=== PATIENT | female | born 1980 | race Caucasian/White ===

== ENCOUNTER 2016-09-07 07:16 | Day surgery (SDC) | payer BC ==
[~2016-09-07] VITALS: Ht 149.9 cm; Wt 54.0 kg
[2016-09-07] VITALS (14 sets, daily range): BP systolic 99–146; BP diastolic 56–74; PULSE 59–88; RESP 14–20; Ht 149.9 cm; Wt 54.0 kg
[2016-09-07] MEDS ORDERED: [UNRECOGNIZED DRUG - CODE] PO (08:57)
[2016-09-07] MEDS ORDERED: [UNRECOGNIZED DRUG - REMARK] (08:57)
[2016-09-07] MEDS ORDERED: POLYMYXIN/BACITRACIN 1L IRRIG ONE (09:15)
[2016-09-07] MEDS ORDERED: EPINEPHrine 1 MG INJ ONE (09:17)
[2016-09-07] MEDS ORDERED: MIDAZOLAM 1 MG/ML 2 ML INJ ONE (09:22)
[2016-09-07] MEDS ORDERED: EPINEPHrine 1 MG INJ SC ONE (10:51)
[2016-09-07] MEDS ORDERED: POLYMYXIN/BACITRACIN 1L IRRIG IRR ONE (10:55)
[2016-09-07] MEDS ORDERED: LIDOCAINE 1%/EPI 30 ML INJ ONE (11:48)
[2016-09-07] MEDS ORDERED: OXYMETAZOLINE 0.05% 15 ML NAS SPRAY NASAL ONE ×2 (11:48→13:47)
[2016-09-07] MEDS ORDERED: ONDANSETRON 4 MG INJ ONE (13:56)
[2016-09-07] MEDS ORDERED: CEFAZOLIN 1 GM INJ ONE (13:56)
[2016-09-07] MEDS ORDERED: PROPOFOL 20 ML ONE (13:56)
[2016-09-07] MEDS ORDERED: ROCURONIUM 50 MG INJ ONE (13:56)
[2016-09-07] MEDS ORDERED: LIDOCAINE 2% (SDV) 5 ML INJ ONE (13:56)
--- NOTE | 2016-09-07 14:09 | HPN ---
Date/Time of Note Date/Time of Note DATE: 09/07/16 TIME: 14:09 Interval H&P Admission Note Pt. seen H&P reviewed: No system changes LACEY WOLFF MD Sep 07, 2016 14:09
[2016-09-07] MEDS ORDERED: FENTAnyl 50 MCG/ML VIAL ONE (14:20)
[2016-09-07] MEDS ORDERED: HYDROCODONE/APAP (5/325) TAB PO PRN (14:30)
[2016-09-07] MEDS ORDERED: morphine 2 MG INJ IV PRN (14:30)
[2016-09-07] MEDS ORDERED: ONDANSETRON 4 MG INJ IV PRN ×2 (14:30→15:00)
[2016-09-07] MEDS ORDERED: FENTAnyl 50 MCG/ML VIAL IV ONE (14:30)
--- NOTE | 2016-09-07 14:50 | OPR ---
Date/Time of Note Date/Time of Note DATE: 09/07/16 TIME: 14:35 Operative Report Free Text/Dictation Plastic Surgery Operative Report Preoperative diagnosis: breast asymmetry, history of breast cancer, unacceptable appearance of nose Postoperative diagnosis: same Procedure: bilateral breast revision with implant exchange and fat grafting, rhinoplasty Surgeon: Albert Ruelas.:none Anesthesia: gen EBL:min IV fluids:per flow sheet Findings:tight, contracted capsule on the left Complications: none Dispo:home Indications for procedure: 36 yo F presents with bilateral breast asymmetry after a history of breast cancer and breast reinstruction. We will remove her implants, replaced them with new cohesive breast implants, and performed bilateral fat grafting and capsule work on the left. We will also perform a cosmetic rhinoplasty. The risks, benefits, alternatives of performing this procedure were discussed with the patient including risks of bleeding, infection , wound healing problems, repeat deformity, pain, airway problems, nasal deformity, need for revision, and the patient states that she understands these risks and would like to proceed with the procedure. All questions were answered , no guarantees were given with regards to the outcome of this procedure. Description of procedure: The patient was brought to the operating room at [facility] where general anesthesia was induced. Next, she was prepped and draped in usual sterile fashion with ChloraPrep on her chest. A total of 10 cc of tumescent solution were infiltrated into each previous incision site in the inframammary fold of the breasts. An additional 400 cc were infiltrated into her lower abdomen through stab incisions in the inferior umbilicus and bilateral flanks. Next, the left breast incision was opened with a 15 blade and electrocautery was used to dissect out into the capsule. The implant was removed. The capsule on the left side was extremely tight and thick. A portion of the capsule was excised and removed. Extensive capsulotomies were carried out laterally, superiorly, anteriorly using the electrocautery until the breast had been released so that I could accommodate the implant. Multiple rounds of capsulotomies and manual palpation were carried out until desired shape of the breast have been achieved. The breast was irrigated with antibiotic irrigation, hemostasis was achieved with electrocautery, then a TCX 470 cc sizer was opened, rinsed in antibiotic irrigation, and was inserted into the left breast. This was too small, and therefore a 525 cc sizer was inserted. This was too large, and then a 495 cc sizer was inserted. This gave the desired appearance. Therefore, the sizer was removed, the breasts are irrigated with antibiotic irrigation, hemostasis was achieved with electrocautery, and the breast was packed with a moist lap. The incision was made in the right breast inframammary fold incision. Dissection was carried out with electrocautery down to the implant capsule, and the implant capsule was opened and was removed. The implant pocket was much softer on the right side. Superior and medial capsulotomy was then carried out. The 495 cc sizer was inserted into the right breast and gave the desired appearance. Therefore, both breasts were irrigated with antibiotic irrigation once again, hemostasis was achieved with the electrocautery, gloves were changed , and then an Allergan TCX 495cc implant SN [id number] was opened, rinsed in antibiotic irrigation, and was inserted into the left breast. The same size and style implan SN [id number] implant was inserted into the right breast. The patient was sat up on the operating room table, the breasts are symmetric, and therefore the capsules were closed with 3-0 Vicryl suture. The Dodge cannulas were then used to harvest fat from the lower abdomen. The fat was allowed to decant, and was then reinjected into the envelopes of the breasts. This significantly improved the contour of the breasts. Therefore, the incisions were then closed with an additional layer 3-0 Vicryl suture followed by 4-0 Monocryl suture. Followed by Dermabond The patient was then reprepped and draped, and a total of 16 cc of 1% lidocaine with 1: 100,000 epinephrine were injected into the nose. The nose was then decorticated in the standard fashion through a transcolumellar incision. The lower lateral cartilages were measured, and in order to improve the definition and increased hip rotation, a 7 mm marking was made from the inferior to superior aspect, then a cephalic trim was performed bilaterally using the 15 blade and the scissors. The cartilage was inspected after redraping the skin, and this had the desired appearance. The transdomal and inter and intradomal sutures were then placed to shape the tip. The nose skin was then redraped and the tip was inspected. The desired appearance was achieved. Next, an additional 5 cc of local anesthetic were injected into the upper gingival buccal sulcus incision, which was then made intraorally with electrocautery. Dissection was carried out with the cautery to the depressor septi nasi muscles. These were then transected with electrocautery down to the nasal base. There were then approximated to each other with 5-0 Vicryl suture. Hemostasis was achieved with electrocautery, and then the intraoral incision was closed with 4-0 chromic suture. The nose was inspected one final time, it was irrigated with saline and hemostasis was achieved with electrocautery, and then the nose was closed with 6-0 nylon sutures on the columella and 4-0 chromic sutures intranasally. The patient tolerated the procedure well, there were no complications, follow-up information wound care instructions were given LACEY WOLFF MD Sep 07, 2016 14:50
[2016-09-07] MEDS ORDERED: HYDROmorphONE (0.2 MG/ML) 10ML SYG IV PRN ×2 (15:00)
[2016-09-07] MEDS ORDERED: FENTAnyl 50 MCG/ML VIAL IV PRN (15:00)
[2016-09-07] MEDS ORDERED: DIPHENHYDRAMINE 50 MG INJ IV PRN (15:00)
[2016-09-07] MEDS ORDERED: MEPERIDINE 25 MG INJ IV PRN (15:00)
== END 2016-09-07 16:13 | disposition home or self-care (01) ==
LOC: SDS 07:16
PROVIDERS: ATTEND Surgery Plastic and Reconstructive Surgery
DX: N65.1 Disproportion of reconstructed breast (principal); Z85.3 Personal history of malignant neoplasm of breast
CPT/HCPCS: 19380; 88305; C1789; J0171; J0690; J1170; J2250; J2405; J3010; Z7512; Z7610

== ENCOUNTER 2017-05-24 07:43 | Day surgery (SDC) | payer BC ==
[2017-05-23 15:30] VITALS: Ht 152.4 cm; Wt 55.2 kg
[~2017-05-24] VITALS: Ht 152.4 cm; Wt 55.2 kg
[2017-05-24] VITALS (13 sets, daily range): BP systolic 103–137; BP diastolic 48–69; PULSE 56–98; RESP 14–27
[~2017-05-24 07:43] MED LIST: PROPOFOL 200 MG INJ ONE; SOD CHLORIDE 0.9% 1,000 ML IV SCH; [UNRECOGNIZED DRUG - CODE] PO; [UNRECOGNIZED DRUG - REMARK]
[2017-05-24] MEDS ORDERED: FENTAnyl 50 MCG/ML VIAL ONE ×2 (11:30→13:15)
[2017-05-24] MEDS ORDERED: MIDAZOLAM 1 MG/ML 2 ML INJ ONE (11:30)
[2017-05-24] MEDS ORDERED: ROCURONIUM 50 MG INJ ONE (11:30)
[2017-05-24] MEDS ORDERED: LIDOCAINE 2% (SDV) 5 ML INJ ONE (11:31)
[2017-05-24] MEDS ORDERED: PROPOFOL 20 ML ONE (11:31)
[2017-05-24] MEDS ORDERED: ONDANSETRON 4 MG INJ ONE (11:31)
[2017-05-24] MEDS ORDERED: DEXAMETHASONE 4 MG/ML 1 ML INJ ONE (11:31)
[2017-05-24] MEDS ORDERED: FAMOTIDINE 20 MG INJ ONE (11:32)
[2017-05-24] MEDS ORDERED: SODIUM CL BACTERIOSTATIC 30 ML INJ ONE (12:06)
[2017-05-24] MEDS ORDERED: POLYMYXIN/BACITRACIN 1L IRRIG ONE (12:07)
[2017-05-24] MEDS ORDERED: GENTAMICIN 80 MG INJ ONE (12:07)
[2017-05-24] MEDS ORDERED: BUPIVACAINE LIPOSOME/PF 266 MG/20 ML VIAL INFIL SCH (12:30)
--- NOTE | 2017-05-24 12:35 | HPN ---
Date/Time of Note Date/Time of Note DATE: 05/24/17 TIME: 12:35 Interval H&P Admission Note Pt. seen H&P reviewed: No system changes LACEY WOLFF MD May 24, 2017 12:35
[2017-05-24] MEDS ORDERED: EPINEPHrine 100 MCG/10 ML SYG IV ONE (12:42)
[2017-05-24] MEDS ORDERED: EPINEPHrine 1 MG INJ ONE (12:42)
[2017-05-24] MEDS ORDERED: morphine 2 MG INJ IV PRN (13:00)
[2017-05-24] MEDS ORDERED: HYDROCODONE/APAP (5/325) TAB PO PRN (13:00)
[2017-05-24] MEDS ORDERED: ONDANSETRON 4 MG INJ IV PRN ×2 (13:00→15:00)
--- NOTE | 2017-05-24 13:06 | OPR ---
Date/Time of Note Date/Time of Note DATE: 05/24/17 TIME: 12:59 Operative Report Free Text/Dictation Plastic Surgery Operative Report Preoperative diagnosis: left breast asymmetry Postoperative diagnosis: same Procedure: left breast revision with IMF revision and fat graft Surgeon: nallely Ruelas.:n/a Anesthesia: gen EBL:min IV fluids: per flow sheet Findings: n/a Complications: none Dispo: home Indications for procedure: Patient presents for left breast revision. She has a prior history of breast reconstruction after mastectomy and has an inframammary fold deformity on the left side. This will be repaired and reinforced with AlloDerm. We will also perform fat grafting to her left breast to help with the contour irregularity. The risks, benefits, alternatives of performing this procedure were discussed with the patient including the risks of bleeding, infection, wound healing problems, asymmetry, need for revision, as well as implant loss and seroma formatino. The patient states that she understands these risks and would like to proceed with the procedure. All questions were answered, no guarantees were given with regards to the outcome of this procedure. Description of procedure: The patient was brought to the operating room at [facility]. General anesthesia was induced and she was prepped and draped in usual sterile fashion. A total of 240 cc of tumescent solution containing 250 cc of lactated Ringer's with one half amp of epinephrine , and 10 cc of Exparel were infiltrated into the right and left flanks. 10 cc of the same solution were injected into the planned inframammary fold incision site on the left breast. The incision was then made with a 10 blade. Electrocautery was used to dissect down to the capsule with electrocautery. The capsule was opened and the implant was removed. The implant was placed into a bath of antibiotic irrigation. A superior capsulotomy was carried out. An inferior capsulotomy was dissected inferiorly to the level of the inframammary fold. Next, the inferior skin flap was tacked back down to the chest wall using interrupted 2-0 PDS suture followed by stratafix suture. Next, a posterior capsular flap was raised with electrocautery this was performed off the chest wall. Next, the base of the capsular flap was tacked back down to the chest wall as well with 2-0 vicryl suture. A piece of AlloDerm contour medium was opened, trimmed, bathed in saline, and this was then inset into the inframammary fold of the breast with 2-0 Vicryl suture to help reinforce the inframammary fold. The inframammary fold was then inspected, and it appeared to be very stable and secure. Therefore, gloves were changed, the implant was replaced, and then the skin was closed with 2-0 Vicryl sutures on the capsule to the alloderm followed by 3-0 Vicryl sutures on the skin and 4-0 Monocryl suture and then Dermabond. The Dodge cannulas were then used to Lipo aspirate fat from the right and left flanks. This was processed on Voalte. It was then reinjected into the left breast in the upper and upper outer region. A total of 20 cc were injected. The stab incisions were closed with 4-0 chromic suture. She tolerated procedure well, there were no complications, follow-up information and wound care instructions were given Preoperative Diagnosis left breast deformity Postoperative Diagnosis same Surgeon see signature line Bag Grader none Anesthesia Type: general Estimated Blood Loss: minimal Transfusion none Specimen none Grafts/Implants alloderm Complications none Procedure Description see dictation LACEY WOLFF MD May 24, 2017 13:06
[2017-05-24] MEDS ORDERED: ACETAMINOPHEN 1000MG/100ML IV 100 ML ONE (13:14)
[2017-05-24] MEDS ORDERED: SUGAMMADEX SODIUM 200 MG/2 ML VIAL IV ONE (13:36)
[2017-05-24] MEDS ORDERED: HYDROmorphONE (0.2 MG/ML) 10ML SYG IV ONE (14:50)
[2017-05-24] MEDS ORDERED: MEPERIDINE 25 MG INJ ONE (14:57)
[2017-05-24] MEDS ORDERED: KETOROLAC 30 MG INJ IV PRN (15:00)
[2017-05-24] MEDS ORDERED: MEPERIDINE 25 MG INJ IV PRN (15:00)
[2017-05-24] MEDS ORDERED: FENTAnyl 50 MCG/ML VIAL IV PRN (15:00)
[2017-05-24] MEDS ORDERED: morphine (1 MG/ML) 10ML SYRINGE IV PRN (15:00)
[2017-05-24] MEDS: HYDROmorphONE (0.2 MG/ML) 10ML SYG IV PRN ×2 (15:01→15:16)
== END 2017-05-24 17:20 | disposition home or self-care (01) ==
LOC: SDS 07:43
PROVIDERS: ATTEND Surgery Plastic and Reconstructive Surgery
DX: N65.1 Disproportion of reconstructed breast (principal); Z85.3 Personal history of malignant neoplasm of breast; Z90.13 Acquired absence of bilateral breasts and nipples
CPT/HCPCS: 19380; 84703; C1762; C9290; J0171; J1100; J1170; J1580; J2175; J2250; J2405; J3010; Z7512; Z7610; J0131